=== PATIENT | male | born 1945 | race Caucasian/White ===

== ENCOUNTER 2024-10-19 06:06 | Day surgery (SDC) | payer MEDICARE, MEDICAID ==
[2024-10-18 12:09] LABS: MEAN PLATELET VOLUME 7.2 FL (7.4-10.4); RED CELL DISTRIBUTION WIDTH 15.4 % (11.5-14.5)
[2024-10-18 12:22] LABS: INR 1.0 INR
[2024-10-18 12:47] LABS: CREATININE 0.97 MG/DL (0.60-1.10); TOTAL CARBON DIOXIDE 29.2 MMOL/L (24-32); eGFR 75 ML/MIN
[~2024-10-19] VITALS: Ht 185.4 cm; Wt 112.5 kg
[~2024-10-19 06:06] MED LIST: AMIO100T4 PO; ATOR40TA72 PO; CARV3.123 PO; CLOP75TA34 PO; LISI10TA27 PO; LISI20TA28 PO; SERT-434 PO; TRAM50TA2 PO
--- NOTE | 2024-10-19 06:28 | ELECTROCARDIOGRAPH REPORT ---
[facility] Test Date: 2024-10-19 Test Time: 06:24:47 Pat Name: PHOENIX OSULLIVAN Department: [facility]AT[facility]ST[facility] O Room: Gender: M Company Controller: : 1945 Requested By: ART LECHUGA Order Number: [id number] Reading MD: Dr. SILVANA Lechuga Measurements Intervals [place] Rate: 79 P: 56 LA: 263 QRS: 40 QRSD: 100 T: -29 QT: 414 QTc: 475 Interpretive Statements Ventricular-paced complexes , underlying atrial flutter No further rhythm analysis attempted due to paced rhythm Prolonged LA interval Borderline T abnormalities, inferior leads Prolonged QT interval Electronically Signed On 10-20-2024 16:35:[address] SILVANA Lechuga Please click the below link to view image of tracing.
[2024-10-19] MEDS ORDERED: AMI200T PO (06:50)
[2024-10-19] MEDS ORDERED: TIOT4MIS2 INH (06:50)
[2024-10-19] MEDS ORDERED: CARV6.253 PO (06:50)
[2024-10-19] MEDS ORDERED: BUDE10.22 INH (06:50)
[2024-10-19] MEDS ORDERED: TRAM50TA2 PO (06:50)
[2024-10-19] MEDS ORDERED: BUS15T PO (06:50)
[2024-10-19] MEDS ORDERED: fentaNYL/PF 50MCG/1 ML 2ML syringe ONE (07:29)
[2024-10-19] MEDS ORDERED: atropine 0.1mg/ml 10ml syringe ONE (07:29)
[2024-10-19] MEDS ORDERED: midazolam 1 mg/ML 2ml injection ONE ×2 (07:29→08:33)
[2024-10-19] MEDS ORDERED: amiodarone 50MG/ML inj IV ONE (07:29)
[2024-10-19] MEDS ORDERED: atropine 0.1mg/ml 10ml syringe IV ONE (07:35)
[2024-10-19] MEDS ORDERED: morphine 10mg/ml inj. IV ONE (07:35)
[2024-10-19] MEDS ORDERED: normal saline 1000ml 1,000 ML IV SCH (07:35)
[2024-10-19] MEDS ORDERED: amiodarone 150mg/dext, iso-os 100 ML IV ONE (07:35)
[2024-10-19] MEDS ORDERED: MIDAZolam 1mg/ml 10ml vial IV ONE (07:35)
[2024-10-19 08:00] VITALS: RESP 15; O2SAT 97
[2024-10-19] MEDS ORDERED: ondansetron/PF 4mg/2ml inj ONE (08:31)
[2024-10-19 09:15] VITALS: BP 113/72; PULSE 80; RESP 15; O2SAT 93
[2024-10-19] MEDS ORDERED: APIX5TAB3 PO (09:17)
[2024-10-19 09:30] VITALS: BP 102/68; PULSE 87; RESP 15; O2SAT 93
[2024-10-19 09:45] VITALS: BP 111/73; PULSE 87; RESP 14; O2SAT 95
--- NOTE | 2024-10-19 09:47 | CARDIOLOGY REPORT ---
APPROVED REPORT EXAM: Limited transesophageal echocardiogram with color flow Doppler and Synchronized Cardioversion. Patient Location: [facility] Blood Pressure: 133/74 mmHg Heart Rate: 91-103 bpm Rhythm: ATRIAL FIBRILLATION w/OCCASIONAL PACING Indications ATRIAL FIBRILLATION EVALUATE ARELY PRE-CARDIOVERSION PACEMAKER 05/13/23 Bottle Cleaner: Elia Bass MD MARCOS probe passed by: Elia Bass MD Previous echo: none available LEFT VENTRICLE Normal LV size and wall thickness. Overall systolic function is normal. LVEF is 55-60%. RIGHT VENTRICLE RV appears at least mildly dilated with moderately reduced systolic function. ATRIA Severe biatrial dilation. Left atrial appendage is visualized in multiple planes and appears normal w ithout debris. Left upper pulmonary vein identified and isolated by 2D and color Doppler. AORTIC VALVE Trileaflet AV appears mildly sclerotic without obvious stenosis. Insufficiency not evaluated. MITRAL VALVE Mild MV annular calcification without stenosis. Mild multijet regurgitation. TRICUSPID VALVE TV is not well visualized but appears grossly normal with trace regurgitation. PERICARDIUM Normal pericardium. No effusion.
--- NOTE | 2024-10-20 01:59 | CARDIOLOGY REPORT ---
DATE OF SERVICE: 10/19/2024 DICTATING PHYSICIAN: SILVANA Bass MD ELECTRICAL CARDIOVERSION PRIMARY PHYSICIAN: GHAZAL Marsh. WORKERS' COMPENSATION MEDIATOR: SILVANA Bass MD INDICATION: The patient is a 79-year-old male with history of hypertension, hyperlipidemia, sick sinus syndrome, status post PPM, CAD, CHF, and paroxysmal atrial fibrillation. He has had these problems since 2016. He had a pacemaker in 05/2023 and the patient initially received subsequently changed to amiodarone. The patient, because of bleeding history, has been kind of semi-compliant and noncompliant taking his anticoagulation. He was last seen in the office at that time on 10/05/2024. He was recommended for Eliquis and he came for cardioversion; however, he was not on Eliquis . After discussing risks, benefits, alternative options, it was decided to do MARCOS-guided electrical cardioversion. Risks, benefits, and alternative options were discussed. Informed consent was obtained. DESCRIPTION OF PROCEDURE: On transesophageal echocardiogram there was no left atrial or left radial appendage clot. Using anterior and posterior patches, patient received 150 joules x 1, shock, the patient was converted to normal sinus rhythm. The patient's heart rate had increased 80 per minute, which subsequently drop down to 60 per minute. The patient was going to continue Coreg, amiodarone 200 mg p.o. daily and at least continue Eliquis for another four weeks. Risks, benefits, and alternative options discussed with informed consent obtained. SILVANA Bass MD TID: [id number] RECEIPT: [id number] /SAMANTHA/EDISON cc: GHAZAL Marsh MTDD
--- NOTE | 2024-10-20 07:57 | ELECTROCARDIOGRAPH REPORT ---
[facility] Test Date: 2024-10-19 Test Time: 09:04:45 Pat Name: PHOENIX OSULLIVAN Department: [facility] O Patient ID: [id number] Room: Gender: M Marketing Information Analyst: : 1945 Requested By: ART LECHUGA Order Number: [id number] Reading MD: Dr. SILVANA Lechuga Measurements Intervals [place] Rate: 80 P: 25 AR: 274 QRS: 31 QRSD: 106 T: -46 QT: 405 QTc: 468 Interpretive Statements atrially paced rhythm. Prolonged AR interval Borderline repolarization abnormality Electronically Signed On 10-20-2024 16:35:[address] SILVANA Lechuga Please click the below link to view image of tracing.
== END 2024-10-19 10:00 | disposition home or self-care (01) ==
LOC: SSTAY O 06:06
PROVIDERS: ATTEND Internal Medicine Cardiovascular Disease
DX: I48.0 Paroxysmal atrial fibrillation (principal); I11.0 Hypertensive heart disease with heart failure; I50.9 Heart failure, unspecified; I49.5 Sick sinus syndrome; I25.10 Atherosclerotic heart disease of native coronary artery without angina pectoris; I42.0 Dilated cardiomyopathy; I50.22 Chronic systolic (congestive) heart failure; I71.20 Thoracic aortic aneurysm, without rupture, unspecified; E78.5 Hyperlipidemia, unspecified; R94.31 Abnormal electrocardiogram [ECG] [EKG]; Z79.899 Other long term (current) drug therapy; Z79.82 Long term (current) use of aspirin; Z95.0 Presence of cardiac pacemaker; Z82.49 Family history of ischemic heart disease and other diseases of the circulatory system; Z98.890 Other specified postprocedural states; Z88.8 Allergy status to other drugs, medicaments and biological substances
CPT/HCPCS: 36415; 80048; 85025; 85610; 92960; 93005; 93312; 93325; 99152; J2250; J2405; J3010; J7030; J0282; J0461